=== PATIENT | male | born 1950 ===

== ENCOUNTER 2017-04-16 08:54 | Day surgery (SDC) | payer MEDICARE ==
[2017-04-15 12:13] VITALS: BMI 31.6
[2017-04-16 09:39] VITALS: RESP 18; TEMP 97.7; O2SAT 98
[2017-04-16] MEDS ORDERED: Propofol 10 mg/ml Inj (20 ML) ONE ×2 (10:11→10:12)
[2017-04-16] MEDS ORDERED: ePHEDrine 50 mg/ml Inj ONE (10:12)
[2017-04-16] MEDS ORDERED: Phenylephrine 10 mg/ml Inj ONE (10:12)
[2017-04-16 12:58] VITALS: BP 125/71; PULSE 73
--- NOTE | 2017-04-18 13:40 | CARD ---
APPROVED REPORT EXAM: Transesophageal echocardiogram with color flow Doppler. INDICATION SEVERE MITRAL REGURGITATION Mitral Valve E/A ratio0.0 TDI E/Lateral E'0.0E/Medial E'0.0 PROCEDURE After obtaining informed consent, patient underwent transesophageal echo in the [employer]. Type of Sedation : Conscious Sedation Sedation was provided by anesthesiologist. Sedation was achieved with intravenously. Transesophageal probe was inserted and advanced into esophagus without difficulty. The ELIZABETH was performed without complications. Throughout the procedure, the blood pressure, pulse oximetry, cardiac rhythm, and rate were monitored. The patient tolerated the procedure without adverse effects. Recovery from conscious sedation was uneventful and vital signs were stable. LEFT VENTRICLE The left ventricle is normal size. There is mild concentric left ventricular hypertrophy. The left ventricular function is normal. The left ventricular ejection fraction is within the normal range. Echo imaging reveals no regional wall motion abnormalities. No left ventricle thrombus noted on this study. There is no ventricular septal defect visualized. There is no left ventricular aneurysm. There is no mass noted in the left ventricle. RIGHT VENTRICLE The right ventricle is normal size. There is normal right ventricular wall thickness. The right ventricular systolic function is normal. ATRIA The left atrium size is normal. The right atrium size is normal. The interatrial septum is intact with no evidence for an atrial septal defect. AORTIC VALVE The aortic valve is normal in structure. No aortic regurgitation is present. There is no aortic valvular stenosis. There is no aortic valvular vegetation. MITRAL VALVE The mitral valve is normal in structure. There is prolapse of the anterior mitral leaflet. There is prolapse of the posterior mitral leaflet. There is no mitral valve stenosis. The mitral regurgitant jet is posteriorly directed, which is consistent with anterior leaflet pathology. There is no evidence of systolic flow reversal in the pulmonary veins. Mitral regurgitation is moderate to severe. TRICUSPID VALVE The tricuspid valve is normal in structure. There is no tricuspid valve regurgitation noted. There is no tricuspid valve prolapse or vegetation. PULMONIC VALVE There is no pulmonic valvular regurgitation. GREAT VESSELS The aortic root is normal in size. There ismild atherosclerotic plaque in the descending aorta. PERICARDIAL EFFUSION There is no pericardial effusion. <Conclusion> There is prolapse of the anterior mitral leaflet. Mitral regurgitation is moderate to severe. There is no evidence of systolic flow reversal in the pulmonary veins. The mitral regurgitant jet is posteriorly directed, which is consistent with anterior leaflet pathology. The left ventricular function is normal.
== END 2017-04-16 12:50 | disposition home or self-care (01) ==
LOC: C.CATHLAB 08:54
PROVIDERS: ATTEND Internal Medicine Cardiovascular Disease
DX: I34.0 Nonrheumatic mitral (valve) insufficiency (principal)
CPT/HCPCS: 93312; J2370; J2704